=== PATIENT | male | born 1985 | race Caucasian/White ===

== ENCOUNTER 2017-07-06 19:37 | Emergency (ER) | payer SELFPAY ==
[2017-07-06] MEDS ORDERED: ONDANSETRON 4 MG TAB.RAPDIS PO ONE (20:35)
--- NOTE | 2017-07-06 20:38 | ER Document Report ---
ED Medical Screen (RME) - General Chief Complaint: Vomiting Stated Complaint: VOMITING Time Seen by Provider: 07/06/17 20:35 Notes: 32-year-old male, chief complaint of vomiting about 6 times starting this evening, states he has pain in his upper abdomen. He has been exposed to multiple family members with vomiting, however he also drinks alcohol this morning. Denies history of pancreatitis. Denies fever, had a bowel movement earlier today, nonbloody. TRAVEL OUTSIDE OF THE [place] IN LAST 30 DAYS: No - Related Data Allergies/Adverse Reactions: No Known Allergies Allergy (Verified 07/17/14 08:56) Past Medical History - Social History Chew tobacco use (# tins/day): Yes Frequency of alcohol use: Occasional Drug Abuse: None Pulmonary Medical History: Reports: Hx Asthma - in childhood Neurological Medical History: Reports: Hx Migraine Renal/ Medical History: Denies: Hx Peritoneal Dialysis Past Surgical History: Reports: Hx Inguinal Hernia - at age 5 y.o., Hx Myringotomy, Hx Orthopedic Surgery - Ledt ACL repair x 2, right thumb - Immunizations Hx Diphtheria, Pertussis, Tetanus Vaccination: Yes Physical Exam - Vital signs Vitals: Temp Pulse Resp BP Pulse Ox 98.2 F 77 18 139/84 H 99 07/06/17 20:13 07/06/17 20:13 07/06/17 20:13 07/06/17 20:13 07/06/17 20:13 - General General appearance: Other - vomiting - Abdominal Tenderness: Tender - generalized upper abdominal tenderness; difficult to evaluate due to sitting and vomiting Course - Re-evaluation Re-evalutation: Patient holding bag, vomiting in triage, difficult to assess abdomen, generalized upper abdominal tenderness, more likely viral based on exposures but based on alcohol consumption and reported upper abdominal pain will evaluate with laboratory workup. - Vital Signs Vital signs: Temp Pulse Resp BP Pulse Ox 98.2 F 77 18 139/84 H 99 07/06/17 20:13 07/06/17 20:13 07/06/17 20:13 07/06/17 20:13 07/06/17 20:13
[2017-07-06 20:58] LABS: ABSOLUTE EOSINOPHILS # (AUTO) 0.1 10^3/uL (0.0-0.6); ABSOLUTE LYMPHOCYTES (AUTO) 1.1 10^3/uL (0.5-4.7); ABSOLUTE MONOCYTES (AUTO) 0.6 10^3/uL (0.1-1.4); ABSOLUTE NEUT (AUTO) 11.4 10^3/uL (1.7-8.2); BASOPHILS % (AUTO) 0.2 % (0-2); EOSINOPHILS % (AUTO) 0.9 % (0-6); HEMATOCRIT 49.3 % (37.9-51.0); HEMOGLOBIN 16.5 g/dL (13.5-17.0); LYMPHOCYTES % (AUTO) 8.4 % (13-45); MEAN CORPUSCULAR HEMOGLOBIN 31.5 pg (27.0-33.4); MEAN CORPUSCULAR HGB CONC 33.5 g/dL (32.0-36.0); MEAN CORPUSCULAR VOLUME 94 fl (80-97); MONOCYTES % (AUTO) 4.7 % (3-13); PLATELET COUNT 265 10^3/uL (150-450); RED BLOOD COUNT 5.26 10^6/uL (4.35-5.55); RED CELL DISTRIBUTION WIDTH 13.1 % (11.5-14.0); SEGMENTED NEUTROPHILS % (AUTO) 85.8 % (42-78); TOTAL CELLS COUNTED % (AUTO) 100 %; WHITE BLOOD COUNT 13.3 10^3/uL (4.0-10.5)
[2017-07-06 21:18] LABS: ALANINE AMINOTRANSFERASE 45 U/L (21-72); ALBUMIN 5.1 g/dL (3.5-5.0); ALKALINE PHOSPHATASE 76 U/L (38-126); ANION GAP 15 (5-19); ASPARTATE AMINO TRANSFERASE 34 U/L (17-59); BILIRUBIN,DIRECT 0.1 mg/dL (0.0-0.4); BILIRUBIN,TOTAL 0.4 mg/dL (0.2-1.3); BLOOD UREA NITROGEN 18 mg/dL (7-20); CALCIUM 9.8 mg/dL (8.4-10.2); CARBON DIOXIDE 27 mmol/L (22-30); CHLORIDE 100 mmol/L (98-107); GLUCOSE 101 mg/dL (75-110); LIPASE 77.7 U/L (23-300); POTASSIUM 4.9 mmol/L (3.6-5.0); SODIUM 141.5 mmol/L (137-145); TOTAL PROTEIN 7.8 g/dL (6.3-8.2)
[2017-07-06] MEDS ORDERED: FAMOTIDINE 20 MG TABLET PO ONE (22:00)
[2017-07-06] MEDS ORDERED: SUCRALFATE 1 GM TABLET PO ONE (22:00)
[2017-07-06] MEDS ORDERED: PROMETHAZINE HCL 25 MG TABLET PO ONE (22:00)
[2017-07-06 22:55] VITALS: BP 125/76
--- NOTE | 2017-07-06 23:09 | ER Document Report ---
ED GI/ - General Chief Complaint: Vomiting Stated Complaint: VOMITING Time Seen by Provider: 07/06/17 20:35 Notes: Patient is a 32-year-old male, chief complaint of vomiting about 6 times starting this evening, states he has pain in his upper abdomen. He has been exposed to multiple family members with vomiting, however he also drinks alcohol this morning. Denies history of pancreatitis. Denies fever, had a bowel movement earlier today, nonbloody. TRAVEL OUTSIDE OF THE [place] IN LAST 30 DAYS: No - Related Data Allergies/Adverse Reactions: No Known Allergies Allergy (Verified 07/17/14 08:56) Past Medical History - General Information source: Patient - Social History Smoking Status: Never Smoker Chew tobacco use (# tins/day): Yes Frequency of alcohol use: Occasional Drug Abuse: None Lives with: Family Family History: Reviewed & Not Pertinent Patient has suicidal ideation: No Patient has homicidal ideation: No Pulmonary Medical History: Reports: Hx Asthma - in childhood Neurological Medical History: Reports: Hx Migraine Renal/ Medical History: Denies: Hx Peritoneal Dialysis Past Surgical History: Reports: Hx Inguinal Hernia - at age 5 y.o., Hx Myringotomy, Hx Orthopedic Surgery - Ledt ACL repair x 2, right thumb - Immunizations Hx Diphtheria, Pertussis, Tetanus Vaccination: Yes Review of Systems - Review of Systems Constitutional: No symptoms reported EENT: No symptoms reported Cardiovascular: No symptoms reported Respiratory: No symptoms reported Gastrointestinal: See HPI Genitourinary: No symptoms reported Male Genitourinary: No symptoms reported Musculoskeletal: No symptoms reported Skin: No symptoms reported Hematologic/Lymphatic: No symptoms reported Neurological/Psychological: No symptoms reported Physical Exam - Vital signs Vitals: Temp Pulse Resp BP Pulse Ox 98.2 F 77 18 139/84 H 99 07/06/17 20:13 07/06/17 20:13 07/06/17 20:13 07/06/17 20:13 07/06/17 20:13 Interpretation: Normal - General General appearance: Appears well, Alert In distress: None - HEENT Head: Normocephalic, Atraumatic Eyes: Normal Pupils: PERRL - Respiratory Respiratory status: No respiratory distress Chest status: Nontender Breath sounds: Normal Chest palpation: Normal - Cardiovascular Rhythm: Regular. No: Tachycardia Heart sounds: Normal auscultation, S1 appreciated, S2 appreciated Murmur: No - Abdominal Inspection: Normal Distension: No distension Bowel sounds: Normal Tenderness: Nontender. No: Tender, Guarding Organomegaly: No organomegaly - Back Back: Normal, Nontender - Extremities General upper extremity: Normal inspection, Nontender, Normal color, Normal ROM , Normal temperature General lower extremity: Normal inspection, Nontender, Normal color, Normal ROM , Normal temperature, Normal weight bearing. No: Hugo's sign - Neurological Neuro grossly intact: Yes Cognition: Normal Orientation: AAOx4 [place] Coma Scale Eye Opening: Spontaneous [place] Coma Scale Verbal: Oriented Dru Coma Scale Motor: Obeys Commands [place] Coma Scale Total: 15 Speech: Normal Motor strength normal: LUE, RUE, LLE, RLE Sensory: Normal - Psychological Associated symptoms: Normal affect, Normal mood - Skin Skin Temperature: Warm Skin Moisture: Dry Skin Color: Normal Course - Re-evaluation Re-evalutation: Given patient reporting alcohol, upper abdominal pain, and vomiting laboratory workup was performed from triage assessment, shows mild leukocytosis, chemistry is unremarkable, lipase is not elevated. Patient was reexamined, abdomen is actually very benign with no noted tenderness, patient is very well-appearing on reexamination. He still reports some nausea but he has Hayes started to drink fluids without any difficulty. Patient given Pepcid, Carafate, Phenergan. Afterwards symptoms resolved. Because of multiple family members with the same symptoms I have very low suspicion of acute abdomen, ACS or other emergent etiology. Patient states he has had problems with gastritis previously, he is on no antacid therapy. Provided with some currently, discussed primary care follow-up , discussed return precautions, patient states understanding and agreement. - Vital Signs Vital signs: Temp Pulse Resp BP Pulse Ox 98.3 F 67 16 125/76 96 07/06/17 22:54 07/06/17 22:54 07/06/17 22:54 07/06/17 22:54 07/06/17 22:54 - Laboratory Result Diagrams: 07/06/17 20:44 07/06/17 20:44 Laboratory results interpreted by me: 07/06/17 07/06/17 20:44 20:44 WBC 13.3 H Seg Neutrophils % 85.8 H Lymphocytes % 8.4 L Absolute Neutrophils 11.4 H Albumin 5.1 H Discharge - Discharge Clinical Impression: Upper abdominal pain Vomiting Qualifiers: Vomiting type: unspecified Vomiting Intractability: non-intractable Nausea presence: with nausea Qualified Code(s): R11.2 - Nausea with vomiting, unspecified Condition: Stable Disposition: HOME, SELF-CARE Additional Instructions: Your workup, symptoms, and exposures to suggest this is most likely viral and should resolve with time. However you are also being treated for gastritis to avoid ulcer and bleeding. Take the Phenergan for nausea, take the Axid and Carafate as prescribed, start with bland food and progress. Avoid alcohol, smoking, NSAIDs, high levels of caffeine, or spicy food. Follow-up with primary care for additional evaluation and management. Return if you worsen including uncontrolled vomiting, severe abdominal pain, fever, vomiting blood, black stools, or any other concerning symptoms. Prescriptions: Famotidine [Pepcid 20 mg Tablet] 20 mg PO BID #20 tablet Promethazine HCl [Phenergan 25 mg Tablet] 1 - 2 tab PO Q6H PRN #20 tablet PRN Reason: Sucralfate [Carafate 1 gm Tablet] 1 gm PO QID #20 tablet Forms: Return to Work
== END 2017-07-06 23:15 | disposition home or self-care (01) ==
LOC: ER 19:37
DX: R10.10 Upper abdominal pain, unspecified (principal); R11.2 Nausea with vomiting, unspecified
CPT/HCPCS: 99284; 36415; 83690; 85025; 80053; S0119

== ENCOUNTER 2017-11-15 08:44 | Emergency (ER) | payer SELFPAY ==
[2017-11-15 08:58] VITALS: BP 125/67
--- NOTE | 2017-11-15 09:12 | ER Document Report ---
ED Extremity Problem, Lower - General Chief Complaint: Fall Injury Stated Complaint: FALL ANKLE PAIN Time Seen by Provider: 11/15/17 09:01 Mode of Arrival: Ambulatory Information source: Patient Notes: 32-year-old male patient presenting with right ankle pain 2 days. Patient reports that he was texting while walking and tripped walking over a parking curb. Patient reports he has been taking ibuprofen, icing it and elevating it however there is some bruising so he was concerned that it might be fractured. Patient is able to bear weight however he reports that it feels better if he uses a crutch. TRAVEL OUTSIDE OF THE [place] IN LAST 30 DAYS: No - Related Data Allergies/Adverse Reactions: No Known Allergies Allergy (Verified 07/17/14 08:56) Past Medical History - General Information source: Patient - Social History Smoking Status: Never Smoker Frequency of alcohol use: None Drug Abuse: None Family History: Reviewed & Not Pertinent Pulmonary Medical History: Reports: Hx Asthma - in childhood Neurological Medical History: Reports: Hx Migraine Renal/ Medical History: Denies: Hx Peritoneal Dialysis Past Surgical History: Reports: Hx Inguinal Hernia - at age 5 y.o., Hx Myringotomy, Hx Orthopedic Surgery - Ledt ACL repair x 2, right thumb - Immunizations Hx Diphtheria, Pertussis, Tetanus Vaccination: Yes Review of Systems - Review of Systems Constitutional: No symptoms reported EENT: No symptoms reported Cardiovascular: No symptoms reported Respiratory: No symptoms reported Gastrointestinal: No symptoms reported Genitourinary: No symptoms reported Male Genitourinary: No symptoms reported Musculoskeletal: See HPI Skin: No symptoms reported Hematologic/Lymphatic: No symptoms reported Neurological/Psychological: No symptoms reported Physical Exam - Vital signs Vitals: Temp Resp BP 98.3 F 16 125/67 11/15/17 08:56 11/15/17 08:56 11/15/17 08:56 - Notes Notes: PHYSICAL EXAMINATION: GENERAL: Well-appearing, well-nourished and in no acute distress. HEAD: Atraumatic, normocephalic. EYES: Pupils equal round and reactive to light, extraocular movements intact, sclera anicteric, conjunctiva are normal. NECK: Normal range of motion, supple without lymphadenopathy LUNGS: Breath sounds clear to auscultation bilaterally and equal. No wheezes rales or rhonchi. HEART: Regular rate and rhythm without murmurs Musculoskeletal: Normal range of motion, no pitting or edema. No cyanosis. Mild swelling noted to posterior right ankle with small area of ecchymosis. Cap refill less than 3 seconds, normal motor and sensation distal to injury. NEUROLOGICAL: Cranial nerves grossly intact. Normal speech. Normal sensory, motor exams PSYCH: Normal mood, normal affect. SKIN: Warm, Dry, normal turgor, no rashes or lesions noted. Course - Re-evaluation Re-evalutation: X-rays negative for any acute fracture or dislocation. Will place patient in a ankle stirrup splint and provided crutches. - Vital Signs Vital signs: Temp Pulse Resp BP Pulse Ox 98.3 F 16 125/67 11/15/17 08:56 11/15/17 08:56 11/15/17 08:56 Procedures - Immobilization right ankle Pre-Proc Neuro Vasc Exam: Normal Immobilizer type: Ankle stirrup Performed by: RN Post-Proc Neuro Vasc Exam: Normal - with crutches Discharge - Discharge Clinical Impression: Ankle sprain Qualifiers: Encounter type: initial encounter Involved ligament of ankle: unspecified ligament Laterality: right Qualified Code(s): S93.401A - Sprain of unspecified ligament of right ankle, initial encounter Condition: Stable Disposition: HOME, SELF-CARE Additional Instructions: SPLINT PRECAUTIONS: A splint has been placed. This will protect the area while healing begins. Your problem does NOT normally require a cast. It MUST, however, be held still! Keep the splint on ALL THE TIME until instructed to remove it by the doctor. As you begin to use the area, be careful. You shouldn't do anything which causes discomfort -- you may disturb the injury even with the splint in place. After the initial period of rest and elevation, if splint does not prevent pain when you move, come back. You may require placement of a different splint , or a cast. If there is unexpected severe pain, or numbness, discoloration, or swelling beyond the splint, you should return at once. If you feel that the splint has broken or become loose, come back. SPRAINED ANKLE: Your sprained ankle results from stretching or tearing of the ligaments which support the ankle. This usually results from twisting the foot inward and under. The ligaments will require time and protection in order to heal properly. Many ankle sprains are quite disabling, and should be taken seriously. The usual treatment for an ankle sprain is cold packs; protection with tape , splints, or wraps; elevation; and staying off the ankle for at least a day. As the ankle improves, you can walk IF it's not painful to bear weight. Sports are best postponed until healing is complete. More serious sprains usually require strengthening exercises after early healing. Your physician has assessed the seriousness of the ligament injury to your ankle. However, the treatment may change, depending on how your ankle progresses. If further exams were recommended, it is important that you follow through. Call the doctor if your foot becomes numb, painful, or severely swollen. ANKLE STIRRUP SPLINT: You are to use an ankle brace called a stirrup splint. This type of brace allows you to place greater stresses on the ankle without risk of re-injury, and is often used for more severe ankle injuries such as avulsion fractures and ligament ruptures. The splint can be worn over a sock or tape. For proper support, wear the splint with a shoe over it. It's important that the splint fit properly. Adjust the heel tension, if needed. If your splint has air bladders, peel back the bottom of each air bladder, then move the Velcro attachment of the heel strap up or down. Air bladder pressure can be adjusted by pulling up the valve at the top, threading the air tube down into the main bladder, then blowing air into the bladder or squeezing it out. The two sides of the stirrup can be moved forward or back on your ankle by changing the attachment of the main straps. If you are unable to use the ankle comfortably in the splint, return for re -evaluation. ICE & ELEVATION: Apply ice packs frequently against the painful area. Many different schedules are recommended, such as "20 minutes on, 20 minutes off" or "one hour ice, two hours rest." If you need to work, you may need to go longer between ice treatments. You should plan to have the area ice packed AT LEAST one- fourth of the time. The ice should be applied over the wrap, tape, or splint, or over a layer of cloth -- not directly against the skin. Some ice bags have a built-in cloth and can be put directly on the skin. Your injured part should be elevated as much as possible over the next 48 hours. Try to keep the injury above the level of the heart. Avoid use of the injured area. Elevation and rest will decrease the swelling. USE OF [id number] IBUPROFEN: Ibuprofen (Advil, Nuprin, Medipren, Motrin IB) is a medication for fever and pain control. In addition, it has anti- inflammatory effects which may be beneficial, especially in the treatment of injuries. It's best to take ibuprofen with food. Persons with ulcer disease or allergy to aspirin should notify their physician of this before taking ibuprofen. Ibuprofen can be given every four to six hours, for a total of four doses daily. Take 600mg every 6 hours. FOLLOW-UP CARE: If you have been referred to a physician for follow-up care, call the physician s office for an appointment as you were instructed or within the next two days. If you experience worsening or a significant change in your symptoms, notify the physician immediately or return to the Emergency Department at any time for re-evaluation. Prescriptions: Tramadol HCl 50 mg PO Q6H PRN #16 tablet PRN Reason: Severe Pain Forms: Return to Work Referrals: GILBERTO WEN MD [Primary Care Provider] - Follow up as needed
--- NOTE | 2017-11-15 09:34 | RADIOLOGY REPORT (SQ) ---
EXAM DESCRIPTION: ANKLE RIGHT COMPLETE COMPLETED DATE/TIME: 11/15/2017 9:24 am REASON FOR STUDY: pain s/p fall 2 days ago COMPARISON: None. NUMBER OF VIEWS: Three views. TECHNIQUE: AP, lateral, and oblique radiographic images acquired of the right ankle. LIMITATIONS: None. FINDINGS: MINERALIZATION: Normal. BONES: No acute fracture or dislocation. No worrisome bone lesions. JOINTS: No effusions. SOFT TISSUES: No soft tissue swelling. No foreign body. OTHER: No other significant finding. IMPRESSION: NEGATIVE STUDY OF THE RIGHT ANKLE. NO RADIOGRAPHIC EVIDENCE OF ACUTE INJURY. TECHNICAL DOCUMENTATION: JOB ID: [id number] [employer]- All Rights Reserved Reading location - IP/workstation name: [email or web address]
== END 2017-11-15 10:05 | disposition home or self-care (01) ==
LOC: ER 08:44
DX: S93.401A Sprain of unspecified ligament of right ankle, initial encounter (principal); M25.571 Pain in right ankle and joints of right foot; W10.1XXA Fall (on)(from) sidewalk curb, initial encounter
CPT/HCPCS: 99283; 73610; L1902

== ENCOUNTER 2019-10-01 11:28 | Emergency (ER) | payer OTHER ==
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
--- NOTE | 2019-10-01 12:28 | RADIOLOGY REPORT (SQ) ---
EXAM DESCRIPTION: T SPINE AP/LAT IMAGES COMPLETED DATE/TIME: 10/01/2019 12:14 pm REASON FOR STUDY: pain COMPARISON: None. NUMBER OF VIEWS: Two views. TECHNIQUE: AP and lateral radiographic images acquired of the thoracic spine. LIMITATIONS: None. FINDINGS: MINERALIZATION: Normal. ALIGNMENT: Mild levoscoliosis. VERTEBRAE: There is mild anterior wedging of T11 that does not appear to be acute. DISCS: No significant loss of height or significant narrowing. No large osteophytes. HARDWARE: None in the spine. MEDIASTINUM AND SOFT TISSUES: Normal heart size and aortic contour. No soft tissue abnormality. VISUALIZED LUNG YUN: Clear. OTHER: No other significant finding. IMPRESSION: Mild scoliosis. Mild anterior wedging of T11 that does not appear to be acute. TECHNICAL DOCUMENTATION: JOB ID: [id number] [employer]- All Rights Reserved Reading location - IP/workstation name: [email or web address]
[2019-10-01 13:54] VITALS: BP 142/87
== END 2019-10-01 13:38 | disposition home or self-care (01) ==
LOC: ER 11:28
DX: M62.830 Muscle spasm of back (principal); V49.40XA Driver injured in collision with unspecified motor vehicles in traffic accident, initial encounter; M41.9 Scoliosis, unspecified
CPT/HCPCS: 72070; 99283

== ENCOUNTER → 2020-02-01 | Outpatient (CLI) | payer OTHER | LOC: OD 11:53 | PROVIDERS: ATTEND Otolaryngology | DX: H69.83 Other specified disorders of Eustachian tube, bilateral (principal) | CPT/HCPCS: 36415; 82785; 86003 ==